=== PATIENT | male | born 1975 | race Two or more races ===

== ENCOUNTER 2024-08-22 19:28 | Inpatient (IN) | payer OTHER ==
[~2024-08-22] VITALS: Ht 165.1 cm; Wt 65.8 kg
--- NOTE | 2024-08-22 20:21 | NUR ---
SE RECIBE PTE ALERTA, ORIENTADO X3 Y AMBULANDO. PTE REFIERE MIGUEL ÁNGEL DOLOR ABDOMINAL Y NAUSEAS DESDE MATT. SE MIDEN S/V Y SE UBICA.
[2024-08-22] MEDS ORDERED: FAMOTIDINE/PF 20 MG in 0.9 % SODIUM CHLORIDE 8 ML IV PUSH STA (21:06)
[2024-08-22] MEDS ORDERED: ONDANSETRON HCL 2 MG/ML VIAL ONE (21:10)
[2024-08-22] MEDS ORDERED: FAMOTIDINE/PF 20 MG/2 ML VIAL ONE (21:10)
[2024-08-22] MEDS ORDERED: MORPHINE SULFATE 4 MG/ML VIAL IV ONE (21:15)
[2024-08-22] MEDS ORDERED: ONDANSETRON HCL 2 MG/ML VIAL IV ONE (21:15)
[2024-08-22] MEDS ORDERED: 0.9 % SODIUM CHLORIDE 1,000 ML IV ONE (21:15)
--- NOTE | 2024-08-22 21:19 | NUR ---
SE EDUCA A PTE SOBRE [place] [facility], SE SHANNAN MUESTRAS DE LABORATORIO UTILIZANDO MEDIDAS ASEPTICAS. SE COLOCA H/L LEANDRO DE EDEMA. SE ADMINISTRAN MEDICAMENTOS LOS CUALES [place]. SE NOTIFICA ESTUDIO DE CT PENDIENTE.
[2024-08-22 21:20] LABS: BASO % 0.2 % (0.1-1.2); HEMATOCRIT 49.2 % (40.1-51.0); HEMOGLOBIN 17.1 g/dL (13.7-17.5); LYMPH # 0.78 (1.18-3.74); LYMPH % 5.1 % (19.3-53.1); MEAN CORPUSCULAR HEMOGLOBIN 32.3 pg (25.6-32.2); MONO # 0.51 (0.24-0.82); MONO % 3.3 % (4.7-12.5); NEUT # 14.04 (1.56-6.13); NEUT % 91.1 % (34.0-71.1); PLATELET COUNT 184 K/uL (163-369); RED BLOOD COUNT 5.29 M/uL (4.63-6.08); RED CELL DISTRIBUTION WIDTH 12.4 % (11.6-14.4)
[2024-08-22 21:43] LABS: BILIRUBIN TOTAL 1.71 mg/dL (0.3-1.2); BILIRUBIN,CONJUGATED 0.37 mg/dL (0.0-0.2); BILIRUBIN,UNCONJUGATED 1.34 mg/dL (0.0-0.6); CALCIUM 9.1 mg/dL (8.5-10.1); CREATININE SERUM 1.28 mg/dL (0.70-1.30); GFR 59.25; GLOBULINA 3.9 G/DL (2.4-3.5); POTASSIUM 4.26 mEq/L (3.5-5.1); TOTAL PROTEIN 7.9 gm/dL (6.4-8.2)
[2024-08-22] MEDS ORDERED: PIPERACILLIN/TAZOBACTAM SODIUM 3.375 GM VIAL IV ONE (23:25)
[2024-08-22] MEDS ORDERED: ACETAMINOPHEN 325 MG TABLET PO PRN (23:30)
[2024-08-22] MEDS ORDERED: ONDANSETRON HCL 4 MG in 0.9 % SODIUM CHLORIDE 50 ML IV PRN (23:30)
[2024-08-22] MEDS ORDERED: MORPHINE SULFATE 4 MG/ML CARTRIDGE IV PRN (23:30)
[2024-08-22] MEDS ORDERED: 0.9 % SODIUM CHLORIDE 1,000 ML IV SCH (23:30)
[2024-08-23] MEDS ORDERED: PIPERACILLIN/TAZOBACTAM SODIUM 3.375 GM in 0.9 % SODIUM CHLORIDE 100 ML IV SCH ×2
[2024-08-23 04:00] VITALS: BP 103/62; O2SAT 98
[2024-08-23 04:06] LABS: PH,URINE 7.5 (5.0-8.0); URINE APPEARANCE Clear; URINE BILIRRUBIN Negative (NEGATIVE); URINE BLOOD Negative; URINE COLOR Yellow; URINE GLUCOSE Negative (NEGATIVE); URINE KETONE Trace (NEGATIVE); URINE LEUKOCYTE Small; URINE NITRATE Negative; URINE PROTEIN 30 (NEGATIVE)
[2024-08-23 04:10] LABS: URINE BACTERIA 149.2 uL (0.0-1933); URINE RBC 7.2 uL (0.0-20.8); URINE WBC 55.2 uL (0.0-23.2)
[2024-08-23 04:28] LABS: COVID-19 AG NEGATIVE (NEGATIVE)
[2024-08-23 04:40] LABS: INR 1.1; PARTIAL THROMBOPLASTIN TIME 30.7 SECONDS (22.0-34.0); PROTHROMBIN TIME 11.9 SECONDS (9.0-11.5)
[2024-08-23 07:38] VITALS: BP 102/65; O2SAT 96
[2024-08-23] MEDS ORDERED: IRBESARTAN 300 MG TABLET PO SCH (09:00)
[2024-08-23] MEDS ORDERED: BUPIVACAINE HCL/MPF 0.5% 30ML VIAL ONE (11:29)
[2024-08-23] MEDS ORDERED: LIDOCAINE HCL 1%/EPINEPHRINE 20ML VIAL IJ ONE (11:29)
[2024-08-23] MEDS ORDERED: PIPERACILLIN/TAZOBACTAM SODIUM 3.375 GM VIAL IV ONE (11:33)
[2024-08-23 19:32] VITALS: BP 151/80; O2SAT 99
[2024-08-23] MEDS ORDERED: PANTOPRAZOLE SODIUM 40 MG/VIAL VIAL IV SCH (21:00)
[2024-08-24 01:24] VITALS: BP 108/65; O2SAT 99
[2024-08-24 08:19] VITALS: BP 139/86; O2SAT 97
[2024-08-24 16:00] VITALS: BP 121/66; O2SAT 95
[2024-08-24 23:42] VITALS: BP 114/79; O2SAT 100
[2024-08-25 07:03] LABS: BASO % 0.2 % (0.1-1.2); EOS # 0.03 (0.04-0.54); EOS % 0.3 % (0.7-7.0); HEMOGLOBIN 14.8 g/dL (13.7-17.5); LYMPH # 0.93 (1.18-3.74); LYMPH % 10.5 % (19.3-53.1); MEAN CORPUSCULAR HEMOGLOBIN 32.2 pg (25.6-32.2); MONO # 0.43 (0.24-0.82); MONO % 4.9 % (4.7-12.5); NEUT # 7.43 (1.56-6.13); NEUT % 83.9 % (34.0-71.1); PLATELET COUNT 157 K/uL (163-369); RED BLOOD COUNT 4.59 M/uL (4.63-6.08); RED CELL DISTRIBUTION WIDTH 12.5 % (11.6-14.4)
[2024-08-25 07:05] LABS: ALBUMIN 2.6 gm/dL (3.4-5.0); BILIRUBIN TOTAL 0.92 mg/dL (0.3-1.2); CALCIUM 8.2 mg/dL (8.5-10.1); CREATININE SERUM 0.87 mg/dL (0.70-1.30); GFR 92.51; POTASSIUM 3.76 mEq/L (3.5-5.1); TOTAL PROTEIN 5.6 gm/dL (6.4-8.2)
[2024-08-25 08:00] VITALS: BP 145/93; O2SAT 97
[2024-08-25 16:24] VITALS: BP 143/75; O2SAT 96
[2024-08-26 03:02] VITALS: BP 147/87; O2SAT 93
[2024-08-26] MEDS ORDERED: MORPHINE SULFATE 2 MG/ML CARTRIDGE IV PRN (07:15)
[2024-08-26 08:00] VITALS: BP 153/90; O2SAT 96
[2024-08-26] MEDS ORDERED: ENOXAPARIN SODIUM 40 MG/0.4 ML SYRINGE SUBCUTANEO SCH (09:00)
[2024-08-26] MEDS ORDERED: ACETAMINOPHEN 500 MG GEL..CAP PO PRN (10:30)
[2024-08-26 15:39] VITALS: BP 160/97; O2SAT 96
[2024-08-26] MEDS ORDERED: ENALAPRILAT DIHYDRATE 1.25 MG/ML VIAL IV PRN (16:15)
[2024-08-26] MEDS ORDERED: PANTOPRAZOLE SODIUM 40 MG TABLET.DR PO SCH (21:00)
[2024-08-26] MEDS ORDERED: PIPERACILLIN/TAZOBACTAM SODIUM 3.375 GM VIAL IV ONE (23:28)
[2024-08-27 00:43] VITALS: BP 130/74; O2SAT 97
[2024-08-27 08:00] VITALS: BP 124/67; O2SAT 98
[2024-08-27 15:54] VITALS: BP 153/95; O2SAT 95
[2024-08-28] VITALS: BP 118/69; O2SAT 95
[2024-08-28 07:34] LABS: ALBUMIN 2.8 gm/dL (3.4-5.0); BILIRUBIN TOTAL 0.38 mg/dL (0.3-1.2); CALCIUM 8.4 mg/dL (8.5-10.1); CREATININE SERUM 0.9 mg/dL (0.70-1.30); GFR 88.96; GLOBULINA 3.2 G/DL (2.4-3.5); POTASSIUM 3.62 mEq/L (3.5-5.1)
[2024-08-28] MEDS ORDERED: PIPERACILLIN/TAZOBACTAM SODIUM 3.375 GM VIAL IV ONE (07:42)
[2024-08-28 07:47] LABS: BASO % 0.4 % (0.1-1.2); EOS # 0.03 (0.04-0.54); EOS % 0.4 % (0.7-7.0); HEMATOCRIT 42.6 % (40.1-51.0); HEMOGLOBIN 14.6 g/dL (13.7-17.5); LYMPH % 21.3 % (19.3-53.1); MEAN CORPUSCULAR HEMOGLOBIN 31.5 pg (25.6-32.2); MONO # 0.61 (0.24-0.82); MONO % 7.6 % (4.7-12.5); NEUT # 5.56 (1.56-6.13); NEUT % 69.7 % (34.0-71.1); PLATELET COUNT 220 K/uL (163-369); RED BLOOD COUNT 4.63 M/uL (4.63-6.08); RED CELL DISTRIBUTION WIDTH 12.2 % (11.6-14.4)
[2024-08-28 09:00] VITALS: BP 137/87; O2SAT 98
[2024-08-28 16:06] VITALS: BP 167/99; O2SAT 97
[2024-08-28 21:31] VITALS: BP 150/97; O2SAT 98
[2024-08-29 00:11] VITALS: BP 134/63; O2SAT 98
[2024-08-29 08:24] VITALS: BP 142/90; O2SAT 100
== END 2024-08-29 14:14 | disposition home or self-care (01) | DRG 399 ==
LOC: ER 19:28 → SURG 23:24
PROVIDERS: General Practice; Student in an Organized Health Care Education/Training Program; Surgery; ADMIT Internal Medicine; ATTEND Internal Medicine
PROC: BW21ZZZ Computerized Tomography (CT Scan) of Abdomen and Pelvis (ICD-10-PCS; 2024-08-22)
PROC: 0DTJ4ZZ Resection of Appendix, Percutaneous Endoscopic Approach (ICD-10-PCS; principal; 2024-08-23 09:30)
DX: K35.33 Acute appendicitis with perforation, localized peritonitis, and gangrene, with abscess (principal); D72.829 Elevated white blood cell count, unspecified